=== PATIENT | female | born 1950 | race Caucasian/White ===

== ENCOUNTER → 2017-04-05 | Outpatient (CLI) | payer OTHER ==
[~2017-04-05] MED LIST: ASPEC81 PO; ASPI325T4 PO; DICL-201 PO; GABA-113 PO; HYDR-5688 PO; METH4PAK PO; MULT-506 PO; OMEG10007 PO; PARO1TAB27 PO; SIMV20TA2 PO; TRIA3AER NAE
--- NOTE | 2017-04-05 16:19 | MAMMOGRAPHY REPORT ---
BILATERAL DIGITAL SCREENING MAMMOGRAM WITH CAD: 04/05/2017 CLINICAL HISTORY: Routine screening. Patient has no complaints. TECHNIQUE: Bilateral CC and MLO views were obtained. Current study was also evaluated with a Compute r Aided Detection (CAD) system. COMPARISON: Comparison is made to exams dated: 03/15/2015 mammogram, 03/12/2014 mammogram, 03/11/2013 m ammogram, 03/13/2012 mammogram, 03/08/2012 mammogram, and 03/07/2011 mammogram - [facility]. BREAST COMPOSITION: There are scattered areas of fibroglandular density in both breasts. FINDINGS: There are a few scattered benign-appearing calcifications in both breasts. No suspicious mass, architectural distortion or cluster of suspicious microcalcifications is seen. IMPRESSION: ACR BI-RADS CATEGORY 2: BENIGN There is no mammographic evidence of malignancy. A 1 year screening mammogram is recommended. The pa tient will receive written notification of the results. Approximately 10% of breast cancers are not detected with mammography. A negative mammographic report should not delay biopsy if a clinically suggestive mass is present. Saloni Hayden M.D. ay/:04/05/2017 14:50:36 Bed Manager: Vera PETERSON(R)(Camilo)(BD), [facility] letter sent: Normal 1/2 BI-RADS Code: ACR BI-RADS Category 2: Benign
== END | disposition home or self-care (01) ==
LOC: C.MAMM 14:28
PROVIDERS: ATTEND Family Medicine
DX: Z12.31 Encounter for screening mammogram for malignant neoplasm of breast (principal)

== ENCOUNTER 2017-04-23 10:41 | Emergency (ER) | payer OTHER ==
[~2017-04-23] VITALS: Ht 162.6 cm; Wt 82.3 kg
[~2017-04-23 10:41] MED LIST changes: -ASPI325T4 PO; -GABA-113 PO; -HYDR-5688 PO; -METH4PAK PO; -OMEG10007 PO
[2017-04-23 10:47] VITALS: TEMP 36.7; Ht 162.6 cm; Wt 82.3 kg
[2017-04-23] MEDS ORDERED: OMEG10007 PO (11:10)
[2017-04-23] MEDS ORDERED: ASPI325T4 PO (11:10)
[2017-04-23] MEDS ORDERED: GABA-113 PO (11:10)
[2017-04-23] MEDS ORDERED: HYDROCODONE/ACETAMOPHEN 5/325MG TAB PO STA (11:14)
--- NOTE | 2017-04-23 11:18 | EMERGENCY ROOM VISIT NOTE ---
History First contact with patient: 11:05 Chief Complaint: HIP PAIN Stated Complaint: HIP PAIN History of Present Illness The patient is a 67 year old female who presents to the Emergency Room with complaints of right hip pain. The patient states the pain started yesterday when she was getting up out of a chair. She reports pain in the right posterior hip. She did not fall to the ground. She is able to walk but with moderate discomfort. The patient rates her discomfort an 8/10. The pain does not radiate. She states that she took Aleve and Motrin yesterday with no improvement. She denies any fevers. She denies any abdominal pain, nausea or vomiting. She denies any loss of bowel or bladder control. She denies any saddle anesthesia, numbness, tingling, weakness in the lower extremities. Review of Systems A 10 system review of systems was completed with positives and pertinent negatives listed in the HPI. Past Medical/Surgical History Medical Problems: (1) Hyperlipidemia Social History Smoking Status: Current Every Day Smoker Housing Status: lives with family Current/Historical Medications Scheduled Diclofenac (Voltaren), 75 MG PO BID PRN Methylprednisolone (Medrol Dosepak), 1 PKT PO UD Multivitamin (Multivitamin), 1 TAB PO DAILY Paroxetine (Paxil), 20 MG PO DAILY Simvastatin (Zocor), 20 MG PO QPM Scheduled PRN Hydrocodone/Acetaminophen 5MG/325MG (Modena 5MG/325MG), 1 TABLET PO Q4H PRN for Pain Miscellaneous Medications Aspirin (Aspirin), 325 MG PO Fish Oil ([place]-3), 1 CAP PO Gabapentin (Neurontin), 300 MG PO Physical Exam Vital Signs Date Time Temp Pulse Resp B/P (MAP) Pulse Ox O2 Delivery O2 Flow Rate FiO2 04/23/17 12:36 76 20 146/76 100 04/23/17 10:47 36.7 89 18 151/83 94 Room Air Physical Exam VITALS: Vitals are noted on the nurse's note and reviewed by myself. Vital signs stable. GENERAL: This is a 67-year-old female, in no acute distress, nondiaphoretic, well-developed well-nourished. SKIN: The skin was without rashes, erythema, edema, or bruising. There is no tenting of the skin. Capillary reflex less than 2 seconds. HEAD: Normocephalic atraumatic. EARS: The external ears are normal in appearance. EYES: Pupils equal round and reactive to light and accommodation. Conjunctivae without injection, sclerae without icterus. Extraocular movements intact. NOSE: Patent, turbinates without inflammation or discharge. MOUTH: Mucous membranes moist. NECK: Supple without nuchal rigidity HEART: Regular rate and rhythm without murmurs gallops or rubs. LUNGS: Clear to auscultation bilaterally without wheezes, rales or rhonchi. No retractions or accessory muscle use. ABDOMEN: Positive bowel sounds x 4. Soft, nontender. MUSCULOSKELETAL: No muscle atrophy, erythema, or edema noted. Full range of motion without joint tenderness in all extremities. There is tenderness to palpation to the right SI joint. There is no tenderness over the lumbar vertebrae. There is no significant tenderness over the hip. The patient is able to move the right hip without any significant difficulty. Negative straight leg raise. Normal gait. Strength 5/5 throughout. NEURO: Patient was alert and oriented to person place and time. Normal sensation to light and sharp touch. Deep tendon reflexes 2+ in the lower extremities bilaterally.. No focal neurological deficits. Medical Decision & Procedures ER Provider Diagnostic Interpretation: RIGHT FEMUR 2 VIEWS ROUTINE CLINICAL HISTORY: right hip pain Right pain COMPARISON: None. DISCUSSION: The bones and joint spaces appear intact. There is no evidence of fracture, dislocation or bony disease. There is no evidence for soft tissue swelling. Tiny ossification density inferior to the patella felt to be on a degenerative basis. IMPRESSION: No acute process. L-SPINE MIN 4 VIEWS ROUTINE HISTORY: 67 years-old Female low back pain, right sided COMPARISON: None available TECHNIQUE: 5 views of the lumbar spine FINDINGS: The ribs at T12 are hypoplastic. Vertebral body heights are well-maintained without compression deformity. There is 3 mm anterolisthesis of L5 on S1, likely degenerative. Multilevel moderate facet arthropathy is noted. There is mild multilevel endplate spurring. Mild intervertebral disc space narrowing is seen at several levels. There is mild convex right curvature of the lumbar spine. There is atherosclerosis of the aorta. Bowel gas pattern is nonobstructive. IMPRESSION: 1. No acute fracture or dislocation. 2. Mild convex right curvature of the lumbar spine. 3. Multilevel end plate spurring and facet arthropathy. 3 mm anterolisthesis L5 on S1 is likely degenerative. PELVIS 1 OR 2 VIEW ROUTINE CLINICAL HISTORY: right hip/si pain pain COMPARISON: None. DISCUSSION: The bones and joint spaces appear intact. There is no evidence of fracture, dislocation or bony disease. There is no evidence for soft tissue swelling. IMPRESSION: Negative study. Medications Administered Medications (Trade) Dose Ordered Sig/Adelfo Route Start Time Stop Time Status Last Admin Dose Admin Acetaminophen/ Hydrocodone Bitart (Modena 5/325 Tab) 1 tab ONE STAT PO 04/23/17 11:14 04/23/17 11:15 DC 04/23/17 11:19 1 TAB ED Course The patient was seen and examined. Previous visits were reviewed. The patient does not have a fever. The patient has pain of the right posterior hip primarily in the area of the SI joint. Imaging was obtained as above. There is a generally of change at L5-S1. This is in the area of the patient's pain. The pain is worse with movement. This is likely musculoskeletal in nature. She has not had any neurologic deficit on exam or by history. She was given one Modena in the emergency department. She'll be given a small prescription for Modena and a prescription for Medrol Dosepak. She should follow-up with her family doctor and/or orthopedics for further evaluation and management. She should return to the ER with any worsening symptoms. The patient was also seen and examined by Dr. Barkley who agrees with the assessment and treatment plan. Medical Decision DIFFERENTIAL DIAGNOSIS: Lumbar strain, degenerative disc disease, spondylolisthesis, herniated disc, spinal stenosis, osteoporosis, fracture, cauda equina syndrome, neoplasm, infection, inflammatory arthritis, among others. [place] Drug Monitoring Program Search Results: patient reviewed within database, no issues identified Medication Reconcilliation Current Medication List: was personally reviewed by sd Blood Pressure Screening Patient's blood pressure: Elevated blood pressure Blood pressure disposition: Elevated BP felt to be situational Impression Primary Impression: SI (sacroiliac) joint inflammation Additional Impression: Low back pain Departure Information Dispostion Home / Self-Care Condition GOOD Prescriptions Hydrocodone/Acetaminophen 5MG/325MG (Modena 5MG/325MG) Tab 1 TABLET PO Q4H Y for Pain, #18 TAB For Initial Treatment Prov: Lian Freitas PA-C 04/23/17 Methylprednisolone (MEDROL DOSEPAK) 4 Mg Karri 1 PKT PO UD, #1 PKT Prov: Lian Freitas PA-C 04/23/17 Referrals Sai Byrd M.D. (PCP) Earle Villegas D.O. Patient Instructions My [facility] Additional Instructions Rest off your feet for 1 to 2 days, ice for 24 hrs then heat to the low back. See your own doctor or an orthopedist in 3-5 days if you are not improving.Prednisone as prescribed. Modena 1 tablet every 6 hrs for worse pain. No driving or alcohol use with Modena . Return with fever, abdominal pain, vomiting or if you develop any problems with bowel or bladder function or if loss of sensation/movement of lower extremities. Problem Qualifiers
--- NOTE | 2017-04-23 12:02 | DIAGNOSTIC IMAGING REPORT ---
PELVIS 1 OR 2 VIEW ROUTINE CLINICAL HISTORY: right hip/si pain pain COMPARISON: None. DISCUSSION: The bones and joint spaces appear intact. There is no evidence of fracture, dislocation or bony disease. There is no evidence for soft tissue swelling. IMPRESSION: Negative study. The above report was generated using voice recognition software. It may contain grammatical, syntax or spelling errors. Electronically signed by: Jak العلي M.D. 04/23/2017 12:01 PM Dictated Date/Time: 04/23/2017 12:01 PM
--- NOTE | 2017-04-23 12:02 | DIAGNOSTIC IMAGING REPORT ---
L-SPINE MIN 4 VIEWS ROUTINE HISTORY: 67 years-old Female low back pain, right sided COMPARISON: None available TECHNIQUE: 5 views of the lumbar spine FINDINGS: The ribs at T12 are hypoplastic. Vertebral body heights are well-maintained without compression deformity. There is 3 mm anterolisthesis of L5 on S1, likely degenerative. Multilevel moderate facet arthropathy is noted. There is mild multilevel endplate spurring. Mild intervertebral disc space narrowing is seen at several levels. There is mild convex right curvature of the lumbar spine. There is atherosclerosis of the aorta. Bowel gas pattern is nonobstructive. IMPRESSION: 1. No acute fracture or dislocation. 2. Mild convex right curvature of the lumbar spine. 3. Multilevel end plate spurring and facet arthropathy. 3 mm anterolisthesis L5 on S1 is likely degenerative. The above report was generated using voice recognition software. It may contain grammatical, syntax or spelling errors. Electronically signed by: Hernandez Nieves M.D. 04/23/2017 12:01 PM Dictated Date/Time: 04/23/2017 11:59 AM
--- NOTE | 2017-04-23 12:03 | DIAGNOSTIC IMAGING REPORT ---
RIGHT FEMUR 2 VIEWS ROUTINE CLINICAL HISTORY: right hip pain Right pain COMPARISON: None. DISCUSSION: The bones and joint spaces appear intact. There is no evidence of fracture, dislocation or bony disease. There is no evidence for soft tissue swelling. Tiny ossification density inferior to the patella felt to be on a degenerative basis. IMPRESSION: No acute process. The above report was generated using voice recognition software. It may contain grammatical, syntax or spelling errors. Electronically signed by: Jak العلي M.D. 04/23/2017 12:02 PM Dictated Date/Time: 04/23/2017 12:01 PM
--- NOTE | 2017-04-23 12:19 | EMERGENCY ROOM VISIT NOTE ---
ED Visit Note First contact with patient: 11:05 I have seen and examined this patient with Lian Freitas and generally agree with the treatment plan as discussed. Current/Historical Medications Scheduled Diclofenac (Voltaren), 75 MG PO BID PRN Multivitamin (Multivitamin), 1 TAB PO DAILY Paroxetine (Paxil), 20 MG PO DAILY Simvastatin (Zocor), 20 MG PO QPM Miscellaneous Medications Aspirin (Aspirin), 325 MG PO Fish Oil ([place]-3), 1 CAP PO Gabapentin (Neurontin), 300 MG PO Allergies Coded Allergies: Penicillins (Verified Allergy, Intermediate, RASH, 11/05/09) Adhesives (Verified Allergy, Mild, RASH, 10/17/09) Uncoded Allergies: ERITHROMYCIN (Allergy, Intermediate, rash on legs & swelling, 04/23/17) Vital Signs Date Time Temp Pulse Resp B/P (MAP) Pulse Ox O2 Delivery O2 Flow Rate FiO2 04/23/17 10:47 36.7 89 18 151/83 94 Room Air Medications Administered Medications (Trade) Dose Ordered Sig/Adelfo Route Start Time Stop Time Status Last Admin Dose Admin Acetaminophen/ Hydrocodone Bitart ([place] 5/325 Tab) 1 tab ONE STAT PO 04/23/17 11:14 04/23/17 11:15 DC 04/23/17 11:19 1 TAB Departure Information Referrals Sai Byrd M.D. (PCP) Patient Instructions My [facility]
[2017-04-23] MEDS ORDERED: HYDR-5688 PO (12:27)
[2017-04-23] MEDS ORDERED: METH4PAK PO (12:27)
[2017-04-23 12:36] VITALS: BP 146/76; PULSE 76; O2SAT 100
== END 2017-04-23 12:38 | disposition home or self-care (01) ==
LOC: C.EDB 10:42 → C.EDD 12:38
DX: M53.3 Sacrococcygeal disorders, not elsewhere classified (principal); M54.5 Low back pain; E78.5 Hyperlipidemia, unspecified; F17.200 Nicotine dependence, unspecified, uncomplicated; Z79.899 Other long term (current) drug therapy; Z79.82 Long term (current) use of aspirin; Z88.0 Allergy status to penicillin; Z91.09 Other allergy status, other than to drugs and biological substances